=== PATIENT | male | born 1940 | race Caucasian/White ===

== ENCOUNTER 2024-08-23 08:48 | Outpatient (CLI) | payer MEDICARE, MEDICAID | END 2024-08-23 23:59 | disposition home or self-care (01) | LOC: MRI02 08:48 | PROVIDERS: ATTEND Nurse Practitioner Adult Health | DX: M51.17 Intervertebral disc disorders with radiculopathy, lumbosacral region (principal); M47.27 Other spondylosis with radiculopathy, lumbosacral region; M48.07 Spinal stenosis, lumbosacral region | CPT/HCPCS: 72148 ==